=== PATIENT | male | born 1955 | race Caucasian/White ===

== ENCOUNTER 2017-05-08 19:45 | Emergency (ER) | payer OTHER ==
[~2017-05-08] VITALS: Ht 167.6 cm; Wt 113.6 kg
[~2017-05-08 19:45] MED LIST: AMLODIPINE BESYL5 MG PO; AMLODIPINE-BEN1 EAC5 PO; ATORVASTATIN CA80 MG PO; FENOFIBRATE160 M1 PO; FIORICET,ESG1 TABLET PO; JANUVIA100 MG PO; METFORMIN HCL1000 MG PO; METFORMIN HCL500 M1 PO; METOPROLOL SUCC50 MG PO; TRAMADOL HCL50 MG PO; VALSARTAN-HCTZ1 EAC3 PO
[2017-05-08] MEDS ORDERED: PERCOCET 5/31 TABLET PO (21:20)
[2017-05-08] MEDS ORDERED: ROBAXIN750 MG PO (21:20)
[2017-05-08 21:57] VITALS: BP 177/99
== END 2017-05-08 22:04 | disposition home or self-care (01) ==
LOC: EME 19:45 → EXP 19:45
DX: S20.212A Contusion of left front wall of thorax, initial encounter (principal); W28.XXXA Contact with powered lawn mower, initial encounter; E78.5 Hyperlipidemia, unspecified; I10 Essential (primary) hypertension; E11.9 Type 2 diabetes mellitus without complications; Z79.84 Long term (current) use of oral hypoglycemic drugs
CPT/HCPCS: 71101; 99281; 99284; J1885; J2270; J2405

== ENCOUNTER 2018-04-01 07:13 | Inpatient (IN) | payer OTHER ==
[~2018-04-01] VITALS: Ht 167.6 cm; Wt 118.0 kg
[~2018-04-01 07:13] MED LIST changes: +PERCOCET 5/31 TABLET PO; +ROBAXIN750 MG PO
[2018-04-01 07:57] LABS: BASOPHIL (%) 0.2 % (0-1); EOSINOPHIL (%) 1.2 % (0-5); EOSINOPHIL COUNT 0.1 K/uL (0-0.3); HEMATOCRIT 40.1 % (38.0-50.0); HEMOGLOBIN 13.4 G/DL (12.5-16.6); IMMATURE GRANULOCYTE (%) 0.4 % (0.0-0.7); LYMPHOCYTE COUNT 0.8 K/uL (1.0-2.8); MCH 29.3 PG (29.0-34.0); MCHC 33.4 G/DL (30.0-36.0); MCV 87.7 FL (86-99); MONOCYTE (%) 8.1 % (3-12); MONOCYTE COUNT 0.7 K/uL (0-0.8); NEUTROPHIL (%) 81.1 % (45-76); NEUTROPHIL COUNT 6.9 K/uL (1.8-6.4); PLATELET COUNT 213 K/uL (156-360); RBC DIS.WIDTH-CV 13.6 % (11.8-14.6); RBC DIS.WIDTH-SD 43.7 % (39-53); RED BLOOD COUNT 4.57 M/uL (4.00-5.50); WHITE BLOOD COUNT 8.5 K/uL (4.1-10.2)
[2018-04-01 08:06] LABS: INTER. NORMALIZED RATIO 1.1
[2018-04-01 08:19] LABS: CHLORIDE 111 mEq/L (99-109); POTASSIUM 3.9 mEq/L (3.7-5.4); SODIUM 145 mEq/L (136-147)
[2018-04-01 08:20] LABS: GLUCOSE 208 mg/dL (70-99)
[2018-04-01 08:24] LABS: CREATININE 0.9 mg/dL (0.6-1.3); GFR ESTIMATE (CALCULATED) > 59 mL/min/ (58.99-99999)
[2018-04-01 08:25] LABS: UREA NITROGEN (BUN) 13 mg/dL (9-23)
[2018-04-01 08:29] LABS: TROP-I INTERPRETATION NEGATIVE; TROPONIN-I < 0.01 ng/mL (0.0-0.30)
[2018-04-01 10:10] LABS: THYROTROPIN (TSH) 1.3 MIU/L (0.4-5.5)
[2018-04-01] MEDS ORDERED: GLUCOPHAGE XR,500 MG PO (12:27)
[2018-04-01] MEDS ORDERED: ZYRTEC10 M3 PO (12:27)
[2018-04-01] MEDS ORDERED: NORVASC10 MG PO (12:28)
[2018-04-01] MEDS ORDERED: LIPITOR20 MG PO (12:28)
[2018-04-01] MEDS ORDERED: BYDUREON P2 MG/0.65 SC (12:29)
[2018-04-01] MEDS ORDERED: LITE COAT ASPI325 M1 PO (12:29)
[2018-04-01] MEDS ORDERED: FLOMAX0.4 MG PO (12:29)
[2018-04-01] MEDS ORDERED: TOPROL XL200 MG PO (12:30)
[2018-04-01] MEDS ORDERED: ZESTRIL40 MG PO (12:30)
[2018-04-01] MEDS ORDERED: VITAMIN D31000 UNI2 PO (12:30)
[2018-04-01] MEDS ORDERED: MEN 50 PLUS MU1 EACH PO (12:30)
[2018-04-01 12:44] LABS: TROP-I INTERPRETATION NEGATIVE; TROPONIN-I < 0.01 ng/mL (0.0-0.30)
[2018-04-01 14:36] LABS: HEMOGLOBIN A1c (GLYCOHEMOGLOB) 6.8 % (Below 5.7)
[2018-04-01 17:10] LABS: INTER. NORMALIZED RATIO 1.2
[2018-04-01 18:25] VITALS: BP 143/84
[2018-04-01 19:43] VITALS: BP 138/92
[2018-04-01 23:18] LABS: INTER. NORMALIZED RATIO 1.2
[2018-04-01 23:21] LABS: PTT 46.7 SEC (25-37)
[2018-04-01 23:36] VITALS: BP 130/90
[2018-04-02 03:58] VITALS: BP 139/84
[2018-04-02 06:06] LABS: HEMATOCRIT 42.2 % (38.0-50.0); HEMOGLOBIN 13.4 G/DL (12.5-16.6); MCH 28.2 PG (29.0-34.0); MCHC 31.8 G/DL (30.0-36.0); MCV 88.7 FL (86-99); RBC DIS.WIDTH-CV 13.4 % (11.8-14.6); RBC DIS.WIDTH-SD 43.7 % (39-53); RED BLOOD COUNT 4.76 M/uL (4.00-5.50); WHITE BLOOD COUNT 7.2 K/uL (4.1-10.2)
[2018-04-02 06:19] LABS: CHLORIDE 105 MEQ/L (99-109); CREATININE 0.9 MG/DL (0.6-1.3); GFR ESTIMATE (CALCULATED) > 59 mL/min/ (58.99-99999); GLUCOSE 141 mg/dL (70-99); POTASSIUM 3.9 MEQ/L (3.7-5.4); SODIUM 144 MEQ/L (136-147); UREA NITROGEN (BUN) 14 mg/dL (9-23)
[2018-04-02 06:46] LABS: HEMATOLOGY COMMENT 1 SN; PLAT.SUFFICIENCY ADEQUATE; PLATELET COUNT 200 K/uL (156-360)
[2018-04-02 07:29] VITALS: BP 128/75
[2018-04-02 12:58] VITALS: BP 125/72
[2018-04-02 17:24] VITALS: BP 128/81
[2018-04-03 00:07] VITALS: BP 120/72
[2018-04-03 07:29] LABS: CHLORIDE 103 MEQ/L (99-109); GFR ESTIMATE (CALCULATED) > 59 mL/min/ (58.99-99999); GLUCOSE 138 mg/dL (70-99); POTASSIUM 3.8 MEQ/L (3.7-5.4); SODIUM 142 MEQ/L (136-147); UREA NITROGEN (BUN) 16 mg/dL (9-23)
[2018-04-03 07:42] VITALS: BP 121/78
[2018-04-03 11:58] VITALS: BP 136/89
[2018-04-03 15:35] VITALS: BP 115/72
[2018-04-03 22:50] VITALS: BP 120/79
[2018-04-04 06:45] VITALS: BP 142/80
[2018-04-04 06:48] LABS: CHLORIDE 102 MEQ/L (99-109); CREATININE 0.9 MG/DL (0.6-1.3); GFR ESTIMATE (CALCULATED) > 59 mL/min/ (58.99-99999); GLUCOSE 132 mg/dL (70-99); SODIUM 141 MEQ/L (136-147); UREA NITROGEN (BUN) 17 mg/dL (9-23)
[2018-04-04] MEDS ORDERED: LASIX40 MG PO (11:16)
[2018-04-04] MEDS ORDERED: PRAVASTATIN SOD80 MG PO (11:16)
[2018-04-04] MEDS ORDERED: ELIQUIS5 MG PO (11:19)
== END 2018-04-04 13:40 | disposition home or self-care (01) | DRG 175 ==
LOC: EME 07:13 → 5EAST 11:01 → EDOF 11:01 → ENRESERV 11:21 → 5EAST 17:40 → ENPENDDIS 04-04 → 5EAST 04-04 13:40
PROVIDERS: Emergency Medicine; Hospitalist; Internal Medicine
PROC: 5A09357 Assistance with Respiratory Ventilation, Less than 24 Consecutive Hours, Continuous Positive Airway Pressure (ICD-10-PCS; principal; 2018-04-02)
DX: I26.99 Other pulmonary embolism without acute cor pulmonale (principal); I11.0 Hypertensive heart disease with heart failure; I50.21 Acute systolic (congestive) heart failure; I48.91 Unspecified atrial fibrillation; E11.9 Type 2 diabetes mellitus without complications; I82.441 Acute embolism and thrombosis of right tibial vein; G47.33 Obstructive sleep apnea (adult) (pediatric); Z99.81 Dependence on supplemental oxygen; I27.20 Pulmonary hypertension, unspecified; I08.1 Rheumatic disorders of both mitral and tricuspid valves; I25.10 Atherosclerotic heart disease of native coronary artery without angina pectoris; E78.5 Hyperlipidemia, unspecified; R06.03 Acute respiratory distress; R09.02 Hypoxemia; E66.01 Morbid (severe) obesity due to excess calories; Z68.41 Body mass index [BMI] 40.0-44.9, adult; F41.9 Anxiety disorder, unspecified; Z79.82 Long term (current) use of aspirin; Z79.84 Long term (current) use of oral hypoglycemic drugs; Z82.49 Family history of ischemic heart disease and other diseases of the circulatory system
CPT/HCPCS: 71045; 71275; 80048; 82948; 83036; 83880; 84443; 84484; 85025; 85027; 85379; 85610; 85730; 93005; 93306; 93970; 94799; 99281; 99285; J1815; J1940